=== PATIENT | female | born 1995 | race Caucasian/White ===

== ENCOUNTER 2019-10-06 12:48 | Outpatient (CLI) | payer MEDICAID, SELFPAY ==
[2019-10-06 13:01] VITALS: BMI 26.4
[2019-10-06 13:07] VITALS: BP 141/72; PULSE 78; RESP 18; TEMP 36.7; O2SAT 100; BMI 26.4
[2019-10-06 13:27] LABS: Microscopic, Urine URINE MICROSCOPIC (MICROSCOPIC)
[2019-10-06 13:29] LABS: Appearance,Urine CLOUDY (Clear); Bilirubin,Urine Negative (Negative); Blood, Urine Negative (Negative); Color,Urine YELLOW (Yellow); Glucose,Urine (UA) Negative (Negative); Ketones,Urine Negative (Negative); Leukocyte Esterase,Urine Negative (Negative); Nitrate,Urine POSITIVE (Negative); Protein,Urine Negative (Negative); Urobilinogen,Urine 0.2 EU/dl (0.2)
[2019-10-06 13:44] LABS: Amorphous Sediment,Urine 2+ /lpf; Bacteria,Urine 4+ /lpf; Mucus,Urine 1+ /lpf
[2019-10-06 13:45] LABS: Amphetamine/Metha Screen,Urine Negative ng/mL (<1000); Barbiturates Screen,Urine Negative ng/mL (<200); Benzodiazepines Screen,Urine Negative ng/mL (<200); Cannabinoid Screen,Urine Negative ng/mL (<50); Cocaine Screen,Urine Negative ng/mL (<300); Methadone Screen,Urine Negative ng/mL (<300); Opiate Screen,Urine Negative ng/mL (<300); Phencyclidine Screen,Urine Negative ng/mL (<25)
--- NOTE | 2019-10-06 14:37 | PC.NURSE ---
patient has no care- unsure due date- estimated r/t fundal height and first test
[2019-10-11 16:11] LABS: Buprenorphine Positive (.)
== END 2019-10-06 14:30 | disposition home or self-care (01) ==
LOC: OBOUT 12:52 → OB 12:53
PROVIDERS: Visit Provider Obstetrics & Gynecology
DX: O36.8190 Decreased fetal movements, unspecified trimester, not applicable or unspecified (principal)
CPT/HCPCS: 59025; 80305; 80348; 81001; 87086; 87088; 87186

== ENCOUNTER → 2019-10-10 12:48 | Outpatient (CLI) | payer MEDICAID, SELFPAY ==
--- NOTE | 2019-10-10 12:52 | US_ITS ---
PROCEDURE: US OB /MATERNAL DETAIL CLINICAL INDICATION: US OB Complete- Dates/Size decreased move. COMPARISON: No exams were available for comparison FINDINGS: Single viable intrauterine gestation. Cephalic position. Placenta: Anteriorplacenta grade 1. Average appearing amniotic fluid The cervix appears satisfactory. Closed and measuring 5 cm in length. Complete survey performed and was unremarkable on the submitted images as in PACS. No discrete anomalies identified on survey imaging by technologist. Active fetus. Three-vessel cord with satisfactory umbilical cord insertion. 4- chamber heart noted. Survey of brain & ventricles Unremarkable. Face and neck survey unremarkable. Diaphragm and chest views unremarkable. Abdomen: Both kidneys noted and unremarkable. Stomach noted and satisfactory. Spine: Survey of the spine satisfactory with no anomalies identified nor imaged. Both arms and legs noted. Amniotic Fluid: Adequate. Maternal adnexa: No significant findings. Measurements: Average ultrasound age 24weeks. Gestational Age 24weeks Estimated due date by ultrasound age 0401/30/2020. Estimated weight 654g BPD = 24weeks 1day OFD = 24 weeks 1 day HC = 23weeks 4days AC = 24weeks 1day FL = 24weeks 1day Growth Percentile= not calculated% Heart Rate = 150bpm Cerebellum = 24weeks 3days Humerus = HC/AC is 1.1 CI is 0.77 FL/BPD is 0.73 FL/AC is 0.22 IMPRESSION: There is a single live fetus which is in cephalic presentation with an average ultrasound age of 24 weeks 1 day. No obvious anomalies. Please see above for detail Dictated by: Jerson Stevenson MD 10/10/2019 15:05 Electronically signed by Jerson Stevenson MD in [facility] 10/10/2019 15:05
== END ==
PROVIDERS: Visit Provider Obstetrics & Gynecology
DX: O09.30 Supervision of pregnancy with insufficient antenatal care, unspecified trimester (principal); Z36.0 Encounter for antenatal screening for chromosomal anomalies
CPT/HCPCS: 76811